=== PATIENT | female | born 1985 | race Caucasian/White ===

== ENCOUNTER 2019-02-04 09:59 | Emergency (ER) | payer SELFPAY ==
[~2019-02-04] VITALS: Ht 165.1 cm; Wt 63.6 kg
[~2019-02-04 09:59] MED LIST: CEFTIN500 MG PO; FLAGYL500 MG PO; MOTRIN 800800 MG/TAB PO; NO HOME MEDICATIONS; NORCO 325 MG-51 TAB PO; NORCO 325 MG-7.1 TAB PO; PERCOCET 325 MG1 TA2 PO; PHENERGAN 25 TA25 MG PO; ULTRAM 50MG TAB50 MG PO; ZOFRAN ODT4 MG PO
[2019-02-04 10:30] VITALS: TEMP 97.5
[2019-02-04] MEDS ORDERED: AMOXICILLIN 8751 TAB PO (11:32)
[2019-02-04 12:30] VITALS: BP 129/81; PULSE 62
== END 2019-02-04 12:30 | disposition home or self-care (01) ==
LOC: COL.ER 09:59
DX: H66.91 Otitis media, unspecified, right ear (principal); J02.9 Acute pharyngitis, unspecified
CPT/HCPCS: J1100

== ENCOUNTER 2019-02-08 14:28 | Emergency (ER) | payer SELFPAY ==
[~2019-02-08] VITALS: Ht 165.1 cm; Wt 63.6 kg
[~2019-02-08 14:28] MED LIST changes: +AMOXICILLIN 8751 TAB PO
[2019-02-08] MEDS ORDERED: NORCO 325 MG-51 TAB PO (15:35)
[2019-02-08] MEDS ORDERED: VOLTAREN 75 DR75 MG PO (15:35)
[2019-02-08 15:54] VITALS: BP 122/68; PULSE 74; TEMP 98.2
== END 2019-02-08 15:55 | disposition home or self-care (01) ==
LOC: COL.ER 14:28
DX: S63.114A Dislocation of metacarpophalangeal joint of right thumb, initial encounter (principal); F17.210 Nicotine dependence, cigarettes, uncomplicated; W08.XXXA Fall from other furniture, initial encounter; Y92.009 Unspecified place in unspecified non-institutional (private) residence as the place of occurrence of the external cause
CPT/HCPCS: J3010

== ENCOUNTER 2019-04-04 12:15 | Emergency (ER) | payer SELFPAY ==
[~2019-04-04] VITALS: Ht 165.1 cm; Wt 59.1 kg
[~2019-04-04 12:15] MED LIST changes: +VOLTAREN 75 DR75 MG PO
[2019-04-04 12:17] VITALS: BP 112/87; TEMP 98.6
[2019-04-04 12:56] LABS: HEMATOCRIT 40.3 % (37.0-47.0); HEMOGLOBIN 14.2 g/dl (12.5-16.0); MEAN CELL VOLUME 89 fl (80.0-100.0); MEAN CORPUSCULAR HEMOGLOBIN 31 pg (27.0-31.0); MEAN CORPUSCULAR HGB CONC 35 g/dl (33.0-37.0); MEAN PLATELET VOLUME 9.4 fl (7.4-10.4); PLATELET COUNT 224 K/mm3 (130-400); RED BLOOD COUNT 4.52 M/mm3 (4.10-5.30); REDCELL DISTRIBUTION WIDTH-CV 12.5 % (11.5-14.5)
[2019-04-04 13:08] LABS: ALANINE AMINOTRANSFERASE 15 U/L (9-52); ALBUMIN 4.2 gm/dL (3.5-5.0); ALKALINE PHOSPHATASE 79 U/L (50-136); ANION GAP 8 mmol/L (7-16); AST,SGOT 18 U/L (15-37); BILIRUBIN,TOTAL 0.5 mg/dL (0.0-1.0); BLOOD UREA NITROGEN 16 mg/dL (7-17); C-REACTIVE PROTEIN < 0.5 mg/dL (0.0-0.9); CALCIUM 9.1 mg/dL (8.4-10.2); CARBON DIOXIDE 22 mmol/L (22-30); CHLORIDE 108 mmol/L (98-107); CREATININE, serum 0.71 (0.52-1.25); GLUCOSE 102 mg/dL (74-106); LIPASE 55 U/L (23-300); POTASSIUM 3.9 mmol/L (3.4-5.0); SODIUM 139 mmol/L (137-145); TOTAL PROTEIN 7.1 gm/dL (6.4-8.2)
[2019-04-04 13:20] LABS: COLLECTION METHOD CLEAN CATCH
[2019-04-04 13:24] LABS: BAND 7 % (0-10); LYMPHOCYTE 4 % (20.0-51.0); NEUTROPHILS 86 % (42.0-75.2)
[2019-04-04 13:25] LABS: PLATELET ESTIMATE NORMAL (NORMAL)
[2019-04-04 13:31] LABS: MUCOUS Present /lpf; PH 6 (5-8); URINE APPEARANCE Hazy; URINE BACTERIA Rare /hpf; URINE BILIRUBIN Negative (NEGATIVE); URINE BLOOD Negative (NEGATIVE); URINE COLOR Yellow; URINE GLUCOSE Negative (NEGATIVE); URINE KETONE Negative (NEGATIVE); URINE LEUKOCYTE ESTERASE Negative (NEGATIVE); URINE NITRATE Negative (NEGATIVE); URINE PROTEIN(semi-quant) Negative (NEGATIVE); URINE RBC 0-2 /hpf
[2019-04-04] MEDS ORDERED: ZOFRAN 4MG T4 MG/TAB PO (16:43)
[2019-04-04] MEDS ORDERED: NORCO 325 MG-51 TAB PO (16:44)
[2019-04-04 16:59] VITALS: PULSE 77
== END 2019-04-04 16:59 | disposition home or self-care (01) ==
LOC: COL.ER 12:15
PROVIDERS: Emergency Medicine
DX: N83.201 Unspecified ovarian cyst, right side (principal); R19.7 Diarrhea, unspecified; Z98.890 Other specified postprocedural states
CPT/HCPCS: J2270; J2405; J7030; Q9967

== ENCOUNTER 2019-05-12 15:37 | Emergency (ER) | payer SELFPAY ==
[~2019-05-12] VITALS: Ht 165.1 cm; Wt 59.1 kg
[~2019-05-12 15:37] MED LIST changes: +ZOFRAN 4MG T4 MG/TAB PO
[2019-05-12 15:46] VITALS: BP 135/91; TEMP 98.6
[2019-05-12 16:15] LABS: COLLECTION METHOD CLEAN CATCH
[2019-05-12 16:26] LABS: MUCOUS Present /lpf; PH 5 (5-8); URINE APPEARANCE Clear; URINE BACTERIA None Seen /hpf; URINE BILIRUBIN Negative (NEGATIVE); URINE BLOOD 2+ (NEGATIVE); URINE COLOR Yellow; URINE GLUCOSE Negative (NEGATIVE); URINE KETONE Negative (NEGATIVE); URINE LEUKOCYTE ESTERASE Negative (NEGATIVE); URINE NITRATE Negative (NEGATIVE); URINE PROTEIN(semi-quant) Negative (NEGATIVE); URINE RBC 0-2 /hpf; URINE UROBILINOGEN >=4.0 mg/dL (NEGATIVE)
[2019-05-12] MEDS ORDERED: ZOFRAN ODT4 MG PO (16:52)
[2019-05-12 16:55] VITALS: PULSE 82
== END 2019-05-12 16:57 | disposition home or self-care (01) ==
LOC: COL.ER 15:37
PROVIDERS: Physician Assistant
DX: B34.9 Viral infection, unspecified (principal); Z87.891 Personal history of nicotine dependence; Z98.51 Tubal ligation status; Z87.442 Personal history of urinary calculi

== ENCOUNTER 2020-01-23 15:01 | Emergency (ER) | payer SELFPAY ==
[~2020-01-23] VITALS: Ht 165.1 cm; Wt 70.5 kg
[~2020-01-23 15:01] MED LIST changes: +NAPROSYN500 MG PO
[2020-01-23 15:10] VITALS: BP 116/72; TEMP 98.8
[2020-01-23 15:48] LABS: COLLECTION METHOD CLEAN CATCH
[2020-01-23 15:57] LABS: MUCOUS Present /lpf; PH 6 (5-8); URINE APPEARANCE Hazy; URINE BACTERIA None Seen /hpf; URINE BILIRUBIN Negative (NEGATIVE); URINE BLOOD Negative (NEGATIVE); URINE COLOR Yellow; URINE GLUCOSE Negative (NEGATIVE); URINE KETONE Negative (NEGATIVE); URINE LEUKOCYTE ESTERASE Negative (NEGATIVE); URINE NITRATE Negative (NEGATIVE); URINE PROTEIN(semi-quant) Negative (NEGATIVE); URINE RBC 0-2 /hpf; URINE UROBILINOGEN >=4.0 mg/dL (NEGATIVE)
[2020-01-23 16:06] LABS: BASO % 0.4 % (0.0-2.0); EOS # 0.1 (0.0-0.7); GRAN # 7.1 (1.4-6.5); GRAN % 68.7 % (42.2-75.2); HEMATOCRIT 39.9 % (37.0-47.0); HEMOGLOBIN 14.1 g/dl (12.5-16.0); LYMPH # 2.6 (1.2-3.4); LYMPH % 25.3 % (20.0-51.0); MEAN CELL VOLUME 87 fl (80.0-100.0); MEAN CORPUSCULAR HEMOGLOBIN 31 pg (27.0-31.0); MEAN CORPUSCULAR HGB CONC 35 g/dl (33.0-37.0); MEAN PLATELET VOLUME 9.5 fl (7.4-10.4); MONO # 0.5 (0.1-0.6); MONO % 4.4 % (1.7-9.3); PLATELET COUNT 237 K/mm3 (130-400); RED BLOOD COUNT 4.57 M/mm3 (4.10-5.30); REDCELL DISTRIBUTION WIDTH-CV 12.4 % (11.5-14.5)
[2020-01-23 16:17] LABS: ALANINE AMINOTRANSFERASE 19 U/L (4-34); ALBUMIN 4.6 gm/dL (3.5-5.0); ALKALINE PHOSPHATASE 84 U/L (50-136); ANION GAP 7 mmol/L (7-16); AST,SGOT 33 U/L (15-37); BILIRUBIN,TOTAL 0.5 mg/dL (0.0-1.0); BLOOD UREA NITROGEN 22 mg/dL (7-17); CALCIUM 9.7 mg/dL (8.4-10.2); CARBON DIOXIDE 24 mmol/L (22-30); CHLORIDE 104 mmol/L (98-107); CREATININE, serum 0.77 (0.52-1.25); GLUCOSE 93 mg/dL (74-106); SODIUM 135 mmol/L (137-145); TOTAL PROTEIN 7.7 gm/dL (6.4-8.2)
[2020-01-23 16:24] LABS: C-REACTIVE PROTEIN < 0.5 mg/dL (0.0-0.9)
[2020-01-23] MEDS ORDERED: NORCO 325 MG-51 TAB PO (17:20)
[2020-01-23 17:42] VITALS: PULSE 67
[2020-01-23] MEDS ORDERED: CEPHALEXIN500 M1 PO ×2 (17:43)
== END 2020-01-23 17:42 | disposition home or self-care (01) ==
LOC: COL.ER 15:01
PROVIDERS: Nurse Practitioner
DX: R10.31 Right lower quadrant pain (principal); Z32.02 Encounter for pregnancy test, result negative; Z87.891 Personal history of nicotine dependence; Z87.442 Personal history of urinary calculi
CPT/HCPCS: J2270; J2405; J7030; Q9967

== ENCOUNTER 2020-09-27 11:05 | Emergency (ER) | payer OTHER ==
[~2020-09-27] VITALS: Ht 165.1 cm; Wt 66.4 kg
[~2020-09-27 11:05] MED LIST changes: +CEPHALEXIN500 M1 PO
[2020-09-27 11:19] VITALS: BP 163/76; TEMP 98.2
[2020-09-27 11:47] LABS: BASO % 0.4 % (0.0-2.0); EOS # 0.1 (0.0-0.7); EOS % 0.8 % (0-4.0); GRAN # 6.1 (1.4-6.5); GRAN % 67.7 % (42.2-75.2); HEMATOCRIT 40.7 % (37.0-47.0); HEMOGLOBIN 14.2 g/dl (12.5-16.0); LYMPH # 2.1 (1.2-3.4); LYMPH % 23.8 % (20.0-51.0); MEAN CELL VOLUME 84 fl (80.0-100.0); MEAN CORPUSCULAR HEMOGLOBIN 30 pg (27.0-31.0); MEAN CORPUSCULAR HGB CONC 35 g/dl (33.0-37.0); MEAN PLATELET VOLUME 9.3 fl (7.4-10.4); MONO # 0.6 (0.1-0.6); MONO % 7.1 % (1.7-9.3); PLATELET COUNT 242 K/mm3 (130-400); RED BLOOD COUNT 4.82 M/mm3 (4.10-5.30); REDCELL DISTRIBUTION WIDTH-CV 12.5 % (11.5-14.5)
[2020-09-27 12:03] LABS: ALANINE AMINOTRANSFERASE 15 U/L (4-34); ALBUMIN 4.6 gm/dL (3.5-5.0); ALKALINE PHOSPHATASE 74 U/L (50-136); ANION GAP 9 mmol/L (7-16); AST,SGOT 29 U/L (15-37); BILIRUBIN,TOTAL 0.4 mg/dL (0.0-1.0); BLOOD UREA NITROGEN 16 mg/dL (7-17); C-REACTIVE PROTEIN < 0.5 mg/dL (0.0-0.9); CARBON DIOXIDE 19 mmol/L (22-30); CHLORIDE 109 mmol/L (98-107); CREATININE, serum 0.68 (0.52-1.25); GLUCOSE 85 mg/dL (74-106); SODIUM 137 mmol/L (137-145)
[2020-09-27 12:44] LABS: COLLECTION METHOD CLEAN CATCH
[2020-09-27 12:56] LABS: MUCOUS Present /lpf; PH 5 (5-8); SQUAMOUS EPITHELIAL 20-50 /hpf; URINE APPEARANCE Turbid; URINE BACTERIA Occasional /hpf; URINE BILIRUBIN Negative (NEGATIVE); URINE BLOOD Negative (NEGATIVE); URINE GLUCOSE Negative (NEGATIVE); URINE KETONE Negative (NEGATIVE); URINE LEUKOCYTE ESTERASE Trace (NEGATIVE); URINE NITRATE Negative (NEGATIVE); URINE PROTEIN(semi-quant) 1+ (NEGATIVE); URINE UROBILINOGEN Negative (NEGATIVE)
[2020-09-27 12:57] LABS: URINE COLOR Yellow
[2020-09-27] MEDS ORDERED: CEFTIN500 MG PO (14:32)
[2020-09-27 14:45] VITALS: PULSE 71
== END 2020-09-27 14:50 | disposition home or self-care (01) ==
LOC: COL.ER 11:05
PROVIDERS: Nurse Practitioner
DX: N39.0 Urinary tract infection, site not specified (principal); Z87.891 Personal history of nicotine dependence; Z32.02 Encounter for pregnancy test, result negative
CPT/HCPCS: J0696; J2060; J2270; J2405; J7030; Q9967

== ENCOUNTER 2020-11-06 13:05 | Emergency (ER) | payer OTHER ==
[~2020-11-06] VITALS: Ht 165.1 cm; Wt 61.8 kg
[2020-11-06 13:21] LABS: COLLECTION METHOD CLEAN CATCH
[2020-11-06 13:22] VITALS: TEMP 98.4
[2020-11-06 13:27] LABS: MUCOUS Present /lpf; PH 5 (5-8); URINE APPEARANCE Hazy; URINE BACTERIA Rare /hpf; URINE BILIRUBIN Negative (NEGATIVE); URINE BLOOD 1+ (NEGATIVE); URINE COLOR Yellow; URINE GLUCOSE Negative (NEGATIVE); URINE KETONE Negative (NEGATIVE); URINE LEUKOCYTE ESTERASE Negative (NEGATIVE); URINE NITRATE Negative (NEGATIVE); URINE PROTEIN(semi-quant) Negative (NEGATIVE); URINE RBC 0-2 /hpf; URINE UROBILINOGEN Negative (NEGATIVE)
[2020-11-06 13:38] LABS: BASO % 0.3 % (0.0-2.0); EOS # 0.1 (0.0-0.7); GRAN # 4.6 (1.4-6.5); HEMATOCRIT 39.4 % (37.0-47.0); HEMOGLOBIN 13.5 g/dl (12.5-16.0); LYMPH # 2.2 (1.2-3.4); LYMPH % 30.4 % (20.0-51.0); MEAN CELL VOLUME 86 fl (80.0-100.0); MEAN CORPUSCULAR HEMOGLOBIN 29 pg (27.0-31.0); MEAN CORPUSCULAR HGB CONC 34 g/dl (33.0-37.0); MEAN PLATELET VOLUME 9.4 fl (7.4-10.4); MONO # 0.4 (0.1-0.6); MONO % 5.2 % (1.7-9.3); PLATELET COUNT 214 K/mm3 (130-400); REDCELL DISTRIBUTION WIDTH-CV 12.4 % (11.5-14.5)
[2020-11-06 13:52] LABS: ALANINE AMINOTRANSFERASE 12 U/L (4-34); ALBUMIN 4.1 gm/dL (3.5-5.0); ALKALINE PHOSPHATASE 68 U/L (50-136); ANION GAP 4 mmol/L (7-16); AST,SGOT 23 U/L (15-37); BILIRUBIN,TOTAL 0.5 mg/dL (0.0-1.0); BLOOD UREA NITROGEN 15 mg/dL (7-17); C-REACTIVE PROTEIN < 0.5 mg/dL (0.0-0.9); CALCIUM 9.8 mg/dL (8.4-10.2); CARBON DIOXIDE 24 mmol/L (22-30); CHLORIDE 107 mmol/L (98-107); CREATININE, serum 0.67 (0.52-1.25); GLUCOSE 87 mg/dL (74-106); LIPASE 61 U/L (23-300); POTASSIUM 3.9 mmol/L (3.4-5.0); SODIUM 134 mmol/L (137-145); TOTAL PROTEIN 7.3 gm/dL (6.4-8.2)
[2020-11-06] MEDS ORDERED: LIORESAL 1010 MG/TAB PO (15:08)
[2020-11-06] MEDS ORDERED: ULTRAM 50MG TAB50 MG PO (15:08)
[2020-11-06 15:31] VITALS: BP 124/68; PULSE 78
== END 2020-11-06 15:31 | disposition home or self-care (01) ==
LOC: COL.ER 13:05
PROVIDERS: Nurse Practitioner Primary Care
DX: R10.31 Right lower quadrant pain (principal); Z32.02 Encounter for pregnancy test, result negative
CPT/HCPCS: J1885; J2270; J7030; Q9967

== ENCOUNTER 2020-11-24 14:10 | Emergency (ER) | payer OTHER ==
[~2020-11-24] VITALS: Ht 165.1 cm; Wt 70.5 kg
[~2020-11-24 14:10] MED LIST changes: +LIORESAL 1010 MG/TAB PO
[2020-11-24 14:48] VITALS: BP 107/70; TEMP 97.8
[2020-11-24] MEDS ORDERED: FLEXERIL 1010 MG/TAB PO (16:31)
[2020-11-24] MEDS ORDERED: NAPROSYN500 MG PO (16:31)
[2020-11-24 16:50] VITALS: PULSE 82
== END 2020-11-24 16:50 | disposition home or self-care (01) ==
LOC: COL.ER 14:10
DX: M54.5 Low back pain (principal); R10.9 Unspecified abdominal pain; Z87.891 Personal history of nicotine dependence; W18.11XA Fall from or off toilet without subsequent striking against object, initial encounter; Y92.009 Unspecified place in unspecified non-institutional (private) residence as the place of occurrence of the external cause
CPT/HCPCS: J1885

== ENCOUNTER 2021-02-03 11:47 | Emergency (ER) | payer OTHER ==
[~2021-02-03] VITALS: Ht 165.1 cm; Wt 63.6 kg
[~2021-02-03 11:47] MED LIST changes: +FLEXERIL 1010 MG/TAB PO
[2021-02-03] MEDS ORDERED: ROBAXIN 75750 MG/TAB PO (14:05)
[2021-02-03 14:40] VITALS: BP 108/61; PULSE 80
== END 2021-02-03 14:00 | disposition home or self-care (01) ==
LOC: COL.ER 11:47
DX: S06.0X1A Concussion with loss of consciousness of 30 minutes or less, initial encounter (principal); W19.XXXA Unspecified fall, initial encounter; W22.8XXA Striking against or struck by other objects, initial encounter; Y92.002 Bathroom of unspecified non-institutional (private) residence as the place of occurrence of the external cause

== ENCOUNTER 2021-03-10 00:38 | Emergency (ER) | payer OTHER ==
[~2021-03-10] VITALS: Ht 167.6 cm; Wt 70.5 kg
[~2021-03-10 00:38] MED LIST changes: +ROBAXIN 75750 MG/TAB PO
[2021-03-10 00:40] VITALS: TEMP 98
[2021-03-10] MEDS ORDERED: SUDAFED60 MG PO (01:02)
[2021-03-10] MEDS ORDERED: AMOXICILLIN 8751 TAB PO (01:02)
[2021-03-10 01:25] VITALS: BP 114/78; PULSE 76
== END 2021-03-10 01:25 | disposition home or self-care (01) ==
LOC: COL.ER 00:38
DX: H69.92 Unspecified Eustachian tube disorder, left ear (principal); J32.9 Chronic sinusitis, unspecified